=== PATIENT | female | born 1950 | race Caucasian/White ===

== ENCOUNTER 2016-04-03 17:21 | Observation (INO) ==
[2016-04-03] MEDS ORDERED: Ondansetron 4 MG/2 ML VIAL IVP ONE ×2 (20:30→22:47)
[2016-04-03] MEDS ORDERED: *HR* Morphine 2 MG/ML SYRINGE IVP ONE ×2 (20:30→22:47)
--- NOTE | 2016-04-03 20:33 | Emergency Department Note ---
Disposition Clinical Impression: Epigastric pain, RUQ pain Disposition: Still a Patient Condition: Fair Referrals: NO,PCP [Primary Care Provider] - Forms: Work/School Release, ED Satisfaction Letter Time of Disposition: 23:09 Abdominal Pain HPI - General Chief Complaint: ED Abdominal Pain Stated Complaint: abd pain// sent from [facility] Time Seen by Provider: 04/03/16 20:22 Source: patient Mode of arrival: ambulatory Limitations: no limitations Nursing Notes Reviewed: Yes Vital Signs Reviewed: Yes - History of Present Illness HPI Narrative: Patient is a 65-year-old female with past medical history of diabetes and hypertension. She presents today due to abdominal pain. Patient states that she has had epigastric and right upper quadrant pain for the past 2 weeks. She states that the pain is constant dull ache with sharp shooting pains that radiate to her back and to her right scapula. She denies any association with food. She does state that the pain worsens when she moves her right arm or lays on her right side. She denies any nausea or vomiting, fevers, other chest pain, shortness of breath, burning with urination or blood in urine, changes in bowel movements. She was sent by her primary care physician due to concern for pancreatitis versus cholecystitis. Pain Scale: 10 - Related Data Home Medications Medication Instructions Recorded Confirmed Aspirin 81 mg PO DAILY 12/26/15 12/26/15 Atenolol [Tenormin] 25 mg PO DAILY 12/26/15 12/26/15 Atorvastatin Calcium [Lipitor] 20 mg PO DAILY 12/26/15 12/26/15 Fluconazole [Diflucan] 150 mg PO DAILY 12/26/15 12/26/15 Glimepiride [Amaryl] 2 mg PO 0800 12/26/15 12/26/15 Hydrochlorothiazide 25 mg PO DAILY 12/26/15 12/26/15 Hydrocortisone Acetate [Anucort-Hc] 25 mg RC BID 12/26/15 12/26/15 Hydrocortisone Rectal CRM 1 appl RC BID 12/26/15 12/26/15 [Proctosol-Hc] Lidocaine HCl [Xolido] 1 appl TP TID 12/26/15 12/26/15 Lisinopril [Zestril] 20 mg PO DAILY 12/26/15 12/26/15 Meclizine HCl [Verticalm] 25 mg PO DAILY 12/26/15 12/26/15 Naproxen Sodium [Aleve] 220 mg PO BID PRN 12/26/15 12/26/15 SitaGLIPtin [Januvia] 100 mg PO DAILY 12/26/15 12/26/15 Previous Rx's Medication Instructions Recorded Docusate [Colace] 100 mg PO BID #30 capsule 12/26/15 Lidocaine Jelly 2% 1 appl MM ONCE #1 jel..ml. 12/26/15 OxyCODONE/APAP 7.5/325 [Percocet 1 each PO Q4HR PRN #50 tablet 12/26/15 7.5/325 MG] Allergies Allergy/AdvReac Type Severity Reaction Status Date / Time Penicillins [PCN] Allergy Hives/swell Verified 04/03/16 17:56 ing Constitutional: Denies: fever Cardiovascular: Denies: chest pain, palpitations, dyspnea on exertion Respiratory: Denies: cough, dyspnea, wheezes Gastrointestinal: Reports: abdominal pain. Denies: nausea, vomiting, diarrhea, constipation, hematemesis, melena, hematochezia Genitourinary: Denies: urgency, dysuria, frequency, hematuria Musculoskeletal: Reports: back pain. Denies: neck pain, joint swelling Integumentary: Denies: rash Neurological: Denies: headache, weakness, numbness Abdominal Pain PMH - Past Medical History Medical history: Reports: COPD, CVA, diabetes, hyperlipidemia, hypertension Female Surgical History: Reports: other Psychiatric history: Reports: no psych history - Social History Smoking status: Current every day smoker Alcohol use: Reports: none Drug use: Reports: none Physical Exam - General Limitations: no limitations General appearance: alert - Head Head exam: atraumatic, normocephalic, normal inspection - Eye Eye exam: Present: normal appearance, PERRL, EOMI - ENT ENT exam: normal exam, normal oropharynx, mucous membranes moist - Neck Neck exam: Present: normal inspection, full ROM, trachea midline - Chest Chest inspection: Present: normal inspection, symmetric chest wall rise - Respiratory Respiratory exam: Present: normal lung sounds bilaterally. Absent: respiratory distress, wheezes - Cardiovascular Cardiovascular exam: Present: regular rate, normal rhythm, normal heart sounds - Abdominal Exam Abdominal exam: Present: soft, tenderness (Tenderness in the epigastric and right upper quadrant regions), guarding (voluntary), Ward's sign. Absent: distention, rebound, rigidity - Extremities Exam Extremities exam: Present: normal inspection, full ROM. Absent: tenderness, pedal edema - Neurological Exam Neurological exam: Present: alert, oriented X3 - Psychiatric Psychiatric exam: Present: normal affect, normal mood - Skin Skin exam: Present: warm, dry, intact, normal color Course Course Narrative: Patient mildly hypertensive, likely due to pain. The rest of the vitals on my exam were within normal limits. Physical exam shows moderate tenderness in the epigastric and right upper quadrant with radiation of pain to the back and scapula upon palpation. Current concern for pancreatitis versus cholecystitis. However, I am more concerned for cholecystitis at this time. Patient refused pain or nausea medication. WIll also order cardiac labs due to radiation of pain to right back/scapula and epigastric pain. Less likely [place], but she is diabetic and older female, could be atypical presentation. 23:08 UA negative. BMP nonconcerning. Mild leukocytosis. US gallbladder showed no signs of cholecystitis. CT abd and pevlis ordered for further assessement. Patient was ordered morphine and zofran per patient request. Currently wiating on CT results. Patient signed out to Kevin Harrington and Apollo Barajas for further dispo. Vital Signs Temperature 98.0 F 04/03/16 17:53 Pulse Rate 62 04/03/16 17:53 Respiratory Rate 18 04/03/16 17:53 Blood Pressure 153/85 04/03/16 17:53 O2 Sat by Pulse Oximetry 94 L 04/03/16 17:53 Temperature 98.0 F 04/03/16 17:53 Pulse Rate 57 04/03/16 21:37 Respiratory Rate 18 04/03/16 21:37 Blood Pressure 135/76 04/03/16 21:37 O2 Sat by Pulse Oximetry 98 04/03/16 21:37 Oxygen Delivery Oxygen Delivery Room Air Abdominal Pain - MDM Narrative Medical decision making narrative: Patient mildly hypertensive, likely due to pain. The rest of the vitals on my exam were within normal limits. Physical exam shows moderate tenderness in the epigastric and right upper quadrant with radiation of pain to the back and scapula upon palpation. Current concern for pancreatitis versus cholecystitis. However, I am more concerned for cholecystitis at this time. Patient refused pain or nausea medication. WIll also order cardiac labs due to radiation of pain to right back/scapula and epigastric pain. Less likely [place], but she is diabetic and older female, could be atypical presentation. 23:08 UA negative. BMP nonconcerning. Mild leukocytosis. US gallbladder showed no signs of cholecystitis. CT abd and pevlis ordered for further assessement. Patient was ordered morphine and zofran per patient request. Currently wiating on CT results. Patient signed out to Kevin Harrington and Apollo Barjaas for further dispo. - Medical Records Medical records reviewed: Yes I reviewed the patient's medical records. - Lab Data Lab results reviewed: Yes I reviewed the patient's lab results. Result diagrams: 04/03/16 20:41 04/03/16 20:41 Lab Results 04/03/16 04/03/16 04/03/16 Range/Units 20:12 20:41 20:41 WBC 11.5 H (4.3-11.1) K/mcL RBC 5.09 H (3.82-4.97) M/mcL Hgb 15.2 (11.5-15.4) g/dL Hct 45.2 H (35.3-44.9) % MCV 88.8 (83.0-100.0) fL MCH 29.9 (28.0-33.3) pg MCHC 33.6 (31.6-35.5) g/dL RDW 15.9 H (11.5-14.5) % Plt Count 221 (140-400) K/mcL MPV 10.4 (9.4-12.4) fL Immature Gran % 0.4 (0-4) % Seg Neutrophils % 72.6 % Lymphocytes % 19.9 % Monocytes % 5.8 % Eosinophils % 1.0 % Basophils % 0.3 % Neutrophils # 8.3 (1.6-8.9) K/mcL Lymphocytes # 2.3 (0.6-4.6) K/mcL Monocytes # 0.7 (0.0-1.3) K/mcL Eosinophils # 0.1 (0.0-0.6) K/mcL Basophils # 0.0 (0.0-0.2) K/mcL Sodium 138 (136-145) mEq/L Potassium 4.3 (3.5-4.5) mEq/L Chloride 104 (98-109) mEq/L Carbon Dioxide 22 (19-29) mEq/L BUN 20 (7-20) mg/dL Creatinine 0.84 (0.57-1.11) mg/dL Est GFR ( Amer) > 60 (> 60) Est GFR (Non-Af Amer) > 60 (> 60) BUN/Creatinine Ratio 24 (6-26) Glucose 66 L (70-99) mg/dL Calculated Osmolality 287 (280-300) Calcium 10.1 (8.6-10.8) mg/dL Total Bilirubin 0.6 (0.2-1.2) mg/dL Direct Bilirubin 0.2 (0.0-0.5) mg/dL Indirect Bilirubin 0.4 (0.0-1.2) mg/dL AST 18 (5-34) Units/L ALT 11 (0-55) Units/L Alkaline Phosphatase 130 H (38-126) Units/L Troponin I (0-0.03) ng/mL Serum Total Protein 7.2 (6.0-8.3) g/dL Albumin 3.5 (3.5-5.0) g/dL Globulin 3.7 H (2.4-3.5) g/dL Albumin/Globulin Ratio 0.9 L (1.1-2.2) Amylase 59 (25-125) Units/L Lipase 17 (8-78) Units/L Urine Color Yellow (Yellow) Urine Clarity Clear (Clear) Urine pH 6.0 (5.0-8.0) pH Units Ur Specific Mos[place] 1.007 L (1.010-1.025) Urine Protein Negative (Neg-Trace) mg/dL Urine Glucose (UA) Normal (Normal) mg/dL Urine Ketones Negative (Negative) mg/dL Urine Blood Negative (Negative) Urine Nitrite Negative (Negative) Urine Bilirubin Negative (Negative) Urine Urobilinogen Normal (Normal) mg/dL Ur Leukocyte Esterase Negative (Negative) Ur Culture Indicated? NO (NO) 04/03/16 Range/Units 20:41 WBC (4.3-11.1) K/mcL RBC (3.82-4.97) M/mcL Hgb (11.5-15.4) g/dL Hct (35.3-44.9) % MCV (83.0-100.0) fL MCH (28.0-33.3) pg MCHC (31.6-35.5) g/dL RDW (11.5-14.5) % Plt Count (140-400) K/mcL MPV (9.4-12.4) fL Immature Gran % (0-4) % Seg Neutrophils % % Lymphocytes % % Monocytes % % Eosinophils % % Basophils % % Neutrophils # (1.6-8.9) K/mcL Lymphocytes # (0.6-4.6) K/mcL Monocytes # (0.0-1.3) K/mcL Eosinophils # (0.0-0.6) K/mcL Basophils # (0.0-0.2) K/mcL Sodium (136-145) mEq/L Potassium (3.5-4.5) mEq/L Chloride (98-109) mEq/L Carbon Dioxide (19-29) mEq/L BUN (7-20) mg/dL Creatinine (0.57-1.11) mg/dL Est GFR ( Amer) (> 60) Est GFR (Non-Af Amer) (> 60) BUN/Creatinine Ratio (6-26) Glucose (70-99) mg/dL Calculated Osmolality (280-300) Calcium (8.6-10.8) mg/dL Total Bilirubin (0.2-1.2) mg/dL Direct Bilirubin (0.0-0.5) mg/dL Indirect Bilirubin (0.0-1.2) mg/dL AST (5-34) Units/L ALT (0-55) Units/L Alkaline Phosphatase (38-126) Units/L Troponin I 0.00 (0-0.03) ng/mL Serum Total Protein (6.0-8.3) g/dL Albumin (3.5-5.0) g/dL Globulin (2.4-3.5) g/dL Albumin/Globulin Ratio (1.1-2.2) Amylase (25-125) Units/L Lipase (8-78) Units/L Urine Color (Yellow) Urine Clarity (Clear) Urine pH (5.0-8.0) pH Units Ur Specific [place] (1.010-1.025) Urine Protein (Neg-Trace) mg/dL Urine Glucose (UA) (Normal) mg/dL Urine Ketones (Negative) mg/dL Urine Blood (Negative) Urine Nitrite (Negative) Urine Bilirubin (Negative) Urine Urobilinogen (Normal) mg/dL Ur Leukocyte Esterase (Negative) Ur Culture Indicated? (NO) - Radiology Data Radiology results reviewed: Yes I reviewed the patient's radiology results. Chest X-Ray 04/03/16 20:29 IMPRESSION: Cardiomegaly and mild pulmonary vascular congestion. Ground-glass opacities in the medial right lung base may represent edema, but pneumonitis cannot be excluded. D/ / Demar Ray MD / Demar Ray MD Interpreting Provider: Demar Ray MD - EKG Data EKG attestation: Yes I reviewed and interpreted this EKG. EKG results narrative: 04/03/2016 at 20:13. Sinus bradycardia. Rate 56. QTC 386. QRS 82. No acute ST elevation or depression. There are T-wave inversions in aVR, V1, lead 3 that are present on previous EKG on 12/20/2015. Attestation Statement - Attestation Attestation: I examined this patient and my medical decision-making was reviewed with the [employer]/PA/Advanced Practice Nurse/Resident Physician. I agree with the documented findings, disposition and treatment plan as described except to the extent set forth below. Patient emergency department 2 weeks of right upper quadrant abdominal pain. Patient reports pain going to her shoulder. Denies fever. She denies being affected by eating food. Was sent in by her primary care doctor. On exam she is in no distress with right upper quadrant tenderness and a positive Ward sign. Plan. Labs and right upper quadrant ultrasound. Patient declines pain control at this time.
[2016-04-03 20:37] LABS: Bilirubin,Urine Negative (Negative); Blood,Urine Negative (Negative); Clarity,Urine Clear (Clear); Color,Urine Yellow (Yellow); Glucose,Urine (UA) Normal (Normal); Ketones,Urine Negative (Negative); Leukocyte Esterase,Urine Negative (Negative); Nitrite,Urine Negative (Negative); Protein,Urine Negative (Neg-Trace); Specific Gravity,Urine 1.007 (1.010-1.025); Urobilinogen,Urine Normal (Normal)
[2016-04-03 20:51] LABS: Basophils % 0.3 %; Eosinophils # 0.1 K/mcL (0.0-0.6); Hematocrit 45.2 % (35.3-44.9); Hemoglobin 15.2 g/dL (11.5-15.4); Immature Granulocytes % 0.4 % (0-4); Lymphocytes # 2.3 K/mcL (0.6-4.6); Lymphocytes % 19.9 %; Mean Corpuscular HGB Conc 33.6 g/dL (31.6-35.5); Mean Corpuscular Hemoglobin 29.9 pg (28.0-33.3); Mean Corpuscular Volume 88.8 fL (83.0-100.0); Mean Platelet Volume 10.4 fL (9.4-12.4); Monocytes # 0.7 K/mcL (0.0-1.3); Monocytes % 5.8 %; Neutrophils # 8.3 K/mcL (1.6-8.9); Platelet Count 221 K/mcL (140-400); Red Blood Count 5.09 M/mcL (3.82-4.97); Red Cell Distribution Width 15.9 % (11.5-14.5); Segmented Neutrophils % 72.6 %
[2016-04-03 21:07] LABS: Alanine Aminotransferase 11 Units/L (0-55); Albumin 3.5 g/dL (3.5-5.0); Albumin/Globulin Ratio 0.9 (1.1-2.2); Alkaline Phosphatase 130 Units/L (38-126); Amylase 59 Units/L (25-125); Aspartate Amino Transferase 18 Units/L (5-34); BUN/Creatinine Ratio 24 (6-26); Bilirubin,Direct 0.2 mg/dL (0.0-0.5); Bilirubin,Indirect 0.4 mg/dL (0.0-1.2); Bilirubin,Total 0.6 mg/dL (0.2-1.2); Blood Urea Nitrogen 20 mg/dL (7-20); Calcium 10.1 mg/dL (8.6-10.8); Carbon Dioxide 22 mEq/L (19-29); Chloride 104 mEq/L (98-109); Globulin 3.7 g/dL (2.4-3.5); Glucose 66 mg/dL (70-99); Lipase 17 Units/L (8-78); Osmolality,Calculated 287 (280-300); Potassium 4.3 mEq/L (3.5-4.5); Sodium 138 mEq/L (136-145); Total Protein 7.2 g/dL (6.0-8.3); eGFR For African Americans > 60 (> 60); eGFR For Non-African Americans > 60 (> 60)
--- NOTE | 2016-04-04 01:52 | Emergency Department Note ---
Disposition Clinical Impression: Epigastric pain, RUQ pain, Pulmonary neoplasm Disposition: Admitted As Inpatient Condition: Good Time of Disposition: 01:43 Abdominal Pain HPI - General Chief Complaint: ED Abdominal Pain Stated Complaint: abd pain// sent from [facility] Time Seen by Provider: 04/03/16 20:22 Source: patient Mode of arrival: ambulatory Nursing Notes Reviewed: Yes Vital Signs Reviewed: Yes - History of Present Illness Pain Scale: 7 - Related Data Home Medications Medication Instructions Recorded Confirmed Aspirin 81 mg PO DAILY 12/26/15 12/26/15 Atenolol [Tenormin] 25 mg PO DAILY 12/26/15 12/26/15 Atorvastatin Calcium [Lipitor] 20 mg PO DAILY 12/26/15 12/26/15 Fluconazole [Diflucan] 150 mg PO DAILY 12/26/15 12/26/15 Glimepiride [Amaryl] 2 mg PO 0800 12/26/15 12/26/15 Hydrochlorothiazide 25 mg PO DAILY 12/26/15 12/26/15 Hydrocortisone Acetate [Anucort-Hc] 25 mg RC BID 12/26/15 12/26/15 Hydrocortisone Rectal CRM 1 appl RC BID 12/26/15 12/26/15 [Proctosol-Hc] Lidocaine HCl [Xolido] 1 appl TP TID 12/26/15 12/26/15 Lisinopril [Zestril] 20 mg PO DAILY 12/26/15 12/26/15 Meclizine HCl [Verticalm] 25 mg PO DAILY 12/26/15 12/26/15 Naproxen Sodium [Aleve] 220 mg PO BID PRN 12/26/15 12/26/15 SitaGLIPtin [Januvia] 100 mg PO DAILY 12/26/15 12/26/15 Previous Rx's Medication Instructions Recorded Docusate [Colace] 100 mg PO BID #30 capsule 12/26/15 Lidocaine Jelly 2% 1 appl MM ONCE #1 jel..ml. 12/26/15 OxyCODONE/APAP 7.5/325 [Percocet 1 each PO Q4HR PRN #50 tablet 12/26/15 7.5/325 MG] Allergies Allergy/AdvReac Type Severity Reaction Status Date / Time Penicillins [PCN] Allergy Hives/swell Verified 04/03/16 17:56 ing Constitutional: Denies: fever Cardiovascular: Denies: chest pain, palpitations, dyspnea on exertion Respiratory: Denies: cough, dyspnea, wheezes Gastrointestinal: Reports: abdominal pain. Denies: nausea, vomiting, diarrhea, constipation, hematemesis, melena, hematochezia Genitourinary: Denies: urgency, dysuria, frequency, hematuria Musculoskeletal: Reports: back pain. Denies: neck pain, joint swelling Integumentary: Denies: rash Neurological: Denies: headache, weakness, numbness Abdominal Pain PMH - Past Medical History Medical history: Reports: COPD, CVA, diabetes, hyperlipidemia, hypertension Female Surgical History: Reports: other Psychiatric history: Reports: no psych history - Social History Smoking status: Current every day smoker Alcohol use: Reports: none Drug use: Reports: none Physical Exam - General Limitations: no limitations General appearance: alert Course Course Narrative: Due to shift change, care of this patient was transferred to [facility]. Please see their earlier documentation for details. Patient had presented from home with 2 week history of epigastric and right upper quadrant pain. Patient was referred by her primary care provider to rule out cholecystitis and pancreatitis. Patient had normal LFT, and lipase level, as well as normal liver gallbladder ultrasound. however abdominal pelvis CT showed middle lobe mass and left lower pulmonary nodules. Follow-up chest CT was ordered and showed 2.9 cm right middle lobe mass consistent with pulmonary neoplasm, as well as multiple lower lobe left sided nodules. I discussed patient with Dr. Harrington, who had discussed with the on-call oncologist who recommended patient could be admitted or discharged for outpatient treatment. These options were discussed with patient, who is requesting admission. Per Dr. Harrington, oncology is recommending a PET scan and biopsy tomorrow. Will plan to admit to hospitalists. Vital Signs Temperature 98.0 F 04/03/16 17:53 Pulse Rate 62 04/03/16 17:53 Respiratory Rate 18 04/03/16 17:53 Blood Pressure 153/85 04/03/16 17:53 O2 Sat by Pulse Oximetry 94 L 04/03/16 17:53 Temperature 98.0 F 04/03/16 17:53 Pulse Rate 65 04/04/16 02:52 Respiratory Rate 18 04/04/16 03:43 Blood Pressure 120/72 04/04/16 03:43 O2 Sat by Pulse Oximetry 95 04/04/16 02:52 Oxygen Delivery Oxygen Delivery Room Air Abdominal Pain - MDM Narrative Medical decision making narrative: Patient is a 65-year-old female smoker present with 2 week history of epigastric and right upper quadrant pain. She was referred to the ED by her primary care provider who was concerned for cholecystitis and pancreatitis. Patient had a ultrasound, that showed no concerning signs for cholecystitis. Her lab work showed no elevation of white count, liver enzymes or lipase. Her epigastric and right upper quadrant pain had improved after medications here. Over her workup also included CT abdomen and pelvis chest, which showed a new right middle lobe neoplasm, and smaller left lower nodules. Patient was discussed with Dr. Harrington who also had [id number] time with patient, Oncology was paged, and he advised patient could be admitted to initiate workup including PET scan, and biopsy to initiate workup. This was agreeable to patient who also preferred not to go home. Patient was accepted by hospitalist for observation. Vitals have been stable. Pain is under control. Chest X-Ray 04/03/16 20:29 IMPRESSION: Cardiomegaly and mild pulmonary vascular congestion. Ground-glass opacities in the medial right lung base may represent edema, but pneumonitis cannot be excluded. D/ / Demar Ray MD / Demar Ray MD Interpreting Provider: Demar Ray MD Gallbladder Ultrasound 04/03/16 20:30 IMPRESSION: 1. Unremarkable gallbladder. 2. Hyperechoic liver suggestive of fatty infiltration. D/ / Pierre Rubio MD / Pierre Rubio MD Interpreting Provider: Pierre Rubio MD Abdomen/Pelvis CT 04/03/16 21:27 IMPRESSION: 1. Middle lobe mass and left lower lobe pulmonary nodule. Chest CT is recommended for further evaluation. 2. Left adrenal gland nodules, indeterminate. Given the possibility of a lung mass, metastatic disease must be considered. 3. Nonobstructing left renal calculus. D/ / Daryl Lance MD / Daryl Lance MD Interpreting Provider: Daryl Lance MD Chest CT 04/03/16 23:25 IMPRESSION: 1. 2.9 cm lobular opacity in right middle lobe is suspicious for pulmonary neoplasm. 2. Pulmonary nodules in left lower lobe measuring up to 0.9 cm. 3. Lobular enlarged left adrenal gland of indeterminate cause. D/ / Pierre Rubio MD / Pierre Rubio MD Interpreting Provider: Pierre Rubio MD All Lab Results (24 Hours) 04/03/16 04/03/16 04/03/16 Range/Units 20:12 20:41 20:41 WBC 11.5 H (4.3-11.1) K/mcL RBC 5.09 H (3.82-4.97) M/mcL Hgb 15.2 (11.5-15.4) g/dL Hct 45.2 H (35.3-44.9) % MCV 88.8 (83.0-100.0) fL MCH 29.9 (28.0-33.3) pg MCHC 33.6 (31.6-35.5) g/dL RDW 15.9 H (11.5-14.5) % Plt Count 221 (140-400) K/mcL MPV 10.4 (9.4-12.4) fL Immature Gran % 0.4 (0-4) % Seg Neutrophils % 72.6 % Lymphocytes % 19.9 % Monocytes % 5.8 % Eosinophils % 1.0 % Basophils % 0.3 % Neutrophils # 8.3 (1.6-8.9) K/mcL Lymphocytes # 2.3 (0.6-4.6) K/mcL Monocytes # 0.7 (0.0-1.3) K/mcL Eosinophils # 0.1 (0.0-0.6) K/mcL Basophils # 0.0 (0.0-0.2) K/mcL Sodium 138 (136-145) mEq/L Potassium 4.3 (3.5-4.5) mEq/L Chloride 104 (98-109) mEq/L Carbon Dioxide 22 (19-29) mEq/L BUN 20 (7-20) mg/dL Creatinine 0.84 (0.57-1.11) mg/dL Est GFR ( Amer) > 60 (> 60) Est GFR (Non-Af Amer) > 60 (> 60) BUN/Creatinine Ratio 24 (6-26) Glucose 66 L (70-99) mg/dL Calculated Osmolality 287 (280-300) Calcium 10.1 (8.6-10.8) mg/dL Total Bilirubin 0.6 (0.2-1.2) mg/dL Direct Bilirubin 0.2 (0.0-0.5) mg/dL Indirect Bilirubin 0.4 (0.0-1.2) mg/dL AST 18 (5-34) Units/L ALT 11 (0-55) Units/L Alkaline Phosphatase 130 H (38-126) Units/L Troponin I (0-0.03) ng/mL Serum Total Protein 7.2 (6.0-8.3) g/dL Albumin 3.5 (3.5-5.0) g/dL Globulin 3.7 H (2.4-3.5) g/dL Albumin/Globulin Ratio 0.9 L (1.1-2.2) Amylase 59 (25-125) Units/L Lipase 17 (8-78) Units/L Urine Color Yellow (Yellow) Urine Clarity Clear (Clear) Urine pH 6.0 (5.0-8.0) pH Units Ur Specific [place] 1.007 L (1.010-1.025) Urine Protein Negative (Neg-Trace) mg/dL Urine Glucose (UA) Normal (Normal) mg/dL Urine Ketones Negative (Negative) mg/dL Urine Blood Negative (Negative) Urine Nitrite Negative (Negative) Urine Bilirubin Negative (Negative) Urine Urobilinogen Normal (Normal) mg/dL Ur Leukocyte Esterase Negative (Negative) Ur Culture Indicated? NO (NO) 04/03/16 Range/Units 20:41 WBC (4.3-11.1) K/mcL RBC (3.82-4.97) M/mcL Hgb (11.5-15.4) g/dL Hct (35.3-44.9) % MCV (83.0-100.0) fL MCH (28.0-33.3) pg MCHC (31.6-35.5) g/dL RDW (11.5-14.5) % Plt Count (140-400) K/mcL MPV (9.4-12.4) fL Immature Gran % (0-4) % Seg Neutrophils % % Lymphocytes % % Monocytes % % Eosinophils % % Basophils % % Neutrophils # (1.6-8.9) K/mcL Lymphocytes # (0.6-4.6) K/mcL Monocytes # (0.0-1.3) K/mcL Eosinophils # (0.0-0.6) K/mcL Basophils # (0.0-0.2) K/mcL Sodium (136-145) mEq/L Potassium (3.5-4.5) mEq/L Chloride (98-109) mEq/L Carbon Dioxide (19-29) mEq/L BUN (7-20) mg/dL Creatinine (0.57-1.11) mg/dL Est GFR ( Amer) (> 60) Est GFR (Non-Af Amer) (> 60) BUN/Creatinine Ratio (6-26) Glucose (70-99) mg/dL Calculated Osmolality (280-300) Calcium (8.6-10.8) mg/dL Total Bilirubin (0.2-1.2) mg/dL Direct Bilirubin (0.0-0.5) mg/dL Indirect Bilirubin (0.0-1.2) mg/dL AST (5-34) Units/L ALT (0-55) Units/L Alkaline Phosphatase (38-126) Units/L Troponin I 0.00 (0-0.03) ng/mL Serum Total Protein (6.0-8.3) g/dL Albumin (3.5-5.0) g/dL Globulin (2.4-3.5) g/dL Albumin/Globulin Ratio (1.1-2.2) Amylase (25-125) Units/L Lipase (8-78) Units/L Urine Color (Yellow) Urine Clarity (Clear) Urine pH (5.0-8.0) pH Units Ur Specific [place] (1.010-1.025) Urine Protein (Neg-Trace) mg/dL Urine Glucose (UA) (Normal) mg/dL Urine Ketones (Negative) mg/dL Urine Blood (Negative) Urine Nitrite (Negative) Urine Bilirubin (Negative) Urine Urobilinogen (Normal) mg/dL Ur Leukocyte Esterase (Negative) Ur Culture Indicated? (NO) - Lab Data Lab results reviewed: Yes I reviewed the patient's lab results. Result diagrams: 04/03/16 20:41 04/03/16 20:41 Lab Results 04/03/16 04/03/16 04/03/16 Range/Units 20:12 20:41 20:41 WBC 11.5 H (4.3-11.1) K/mcL RBC 5.09 H (3.82-4.97) M/mcL Hgb 15.2 (11.5-15.4) g/dL Hct 45.2 H (35.3-44.9) % MCV 88.8 (83.0-100.0) fL MCH 29.9 (28.0-33.3) pg MCHC 33.6 (31.6-35.5) g/dL RDW 15.9 H (11.5-14.5) % Plt Count 221 (140-400) K/mcL MPV 10.4 (9.4-12.4) fL Immature Gran % 0.4 (0-4) % Seg Neutrophils % 72.6 % Lymphocytes % 19.9 % Monocytes % 5.8 % Eosinophils % 1.0 % Basophils % 0.3 % Neutrophils # 8.3 (1.6-8.9) K/mcL Lymphocytes # 2.3 (0.6-4.6) K/mcL Monocytes # 0.7 (0.0-1.3) K/mcL Eosinophils # 0.1 (0.0-0.6) K/mcL Basophils # 0.0 (0.0-0.2) K/mcL Sodium 138 (136-145) mEq/L Potassium 4.3 (3.5-4.5) mEq/L Chloride 104 (98-109) mEq/L Carbon Dioxide 22 (19-29) mEq/L BUN 20 (7-20) mg/dL Creatinine 0.84 (0.57-1.11) mg/dL Est GFR ( Amer) > 60 (> 60) Est GFR (Non-Af Amer) > 60 (> 60) BUN/Creatinine Ratio 24 (6-26) Glucose 66 L (70-99) mg/dL Calculated Osmolality 287 (280-300) Calcium 10.1 (8.6-10.8) mg/dL Total Bilirubin 0.6 (0.2-1.2) mg/dL Direct Bilirubin 0.2 (0.0-0.5) mg/dL Indirect Bilirubin 0.4 (0.0-1.2) mg/dL AST 18 (5-34) Units/L ALT 11 (0-55) Units/L Alkaline Phosphatase 130 H (38-126) Units/L Troponin I (0-0.03) ng/mL Serum Total Protein 7.2 (6.0-8.3) g/dL Albumin 3.5 (3.5-5.0) g/dL Globulin 3.7 H (2.4-3.5) g/dL Albumin/Globulin Ratio 0.9 L (1.1-2.2) Amylase 59 (25-125) Units/L Lipase 17 (8-78) Units/L Urine Color Yellow (Yellow) Urine Clarity Clear (Clear) Urine pH 6.0 (5.0-8.0) pH Units Ur Specific [place] 1.007 L (1.010-1.025) Urine Protein Negative (Neg-Trace) mg/dL Urine Glucose (UA) Normal (Normal) mg/dL Urine Ketones Negative (Negative) mg/dL Urine Blood Negative (Negative) Urine Nitrite Negative (Negative) Urine Bilirubin Negative (Negative) Urine Urobilinogen Normal (Normal) mg/dL Ur Leukocyte Esterase Negative (Negative) Ur Culture Indicated? NO (NO) 04/03/16 Range/Units 20:41 WBC (4.3-11.1) K/mcL RBC (3.82-4.97) M/mcL Hgb (11.5-15.4) g/dL Hct (35.3-44.9) % MCV (83.0-100.0) fL MCH (28.0-33.3) pg MCHC (31.6-35.5) g/dL RDW (11.5-14.5) % Plt Count (140-400) K/mcL MPV (9.4-12.4) fL Immature Gran % (0-4) % Seg Neutrophils % % Lymphocytes % % Monocytes % % Eosinophils % % Basophils % % Neutrophils # (1.6-8.9) K/mcL Lymphocytes # (0.6-4.6) K/mcL Monocytes # (0.0-1.3) K/mcL Eosinophils # (0.0-0.6) K/mcL Basophils # (0.0-0.2) K/mcL Sodium (136-145) mEq/L Potassium (3.5-4.5) mEq/L Chloride (98-109) mEq/L Carbon Dioxide (19-29) mEq/L BUN (7-20) mg/dL Creatinine (0.57-1.11) mg/dL Est GFR ( Amer) (> 60) Est GFR (Non-Af Amer) (> 60) BUN/Creatinine Ratio (6-26) Glucose (70-99) mg/dL Calculated Osmolality (280-300) Calcium (8.6-10.8) mg/dL Total Bilirubin (0.2-1.2) mg/dL Direct Bilirubin (0.0-0.5) mg/dL Indirect Bilirubin (0.0-1.2) mg/dL AST (5-34) Units/L ALT (0-55) Units/L Alkaline Phosphatase (38-126) Units/L Troponin I 0.00 (0-0.03) ng/mL Serum Total Protein (6.0-8.3) g/dL Albumin (3.5-5.0) g/dL Globulin (2.4-3.5) g/dL Albumin/Globulin Ratio (1.1-2.2) Amylase (25-125) Units/L Lipase (8-78) Units/L Urine Color (Yellow) Urine Clarity (Clear) Urine pH (5.0-8.0) pH Units Ur Specific [place] (1.010-1.025) Urine Protein (Neg-Trace) mg/dL Urine Glucose (UA) (Normal) mg/dL Urine Ketones (Negative) mg/dL Urine Blood (Negative) Urine Nitrite (Negative) Urine Bilirubin (Negative) Urine Urobilinogen (Normal) mg/dL Ur Leukocyte Esterase (Negative) Ur Culture Indicated? (NO) - Radiology Data Radiology results reviewed: Yes I reviewed the patient's radiology results.
--- NOTE | 2016-04-04 04:39 | Emergency Department Note ---
START Narrative - START START: For this encounter, I have reviewed the resident, CAR DROPPER, or PA documentation, treatment plan, and medical decision making; and I have had face to face time with this patient. Patient received in signout from Dr. Armstrong pending CT and disposition. CT returned with large mass in the right middle lobe. This is new per the patient is spoke with Dr. Minor, the covering oncologist, who recommended admission to the hospital the patient was currently unable to follow closely as an outpatient. Patient states that she will be unable to obtain close follow-up and we will admit the hospital for further care and observation. Patient's pain is well-controlled after administration of pain medication in the emergency department. Patient is comfortable with the plan for admission to the hospital.
--- NOTE | 2016-04-04 06:05 | Internal Med History&Physical ---
<Deepa Hill Tiffany - Last Filed: 04/04/16 06:56> Date of Encounter: 04/04/16 Time of Encounter: 03:00 Assessment and Plan (1) Pulmonary neoplasm Current visit: Yes Status: Acute CT with 2.9 cm lobular opacity in right middle lobe suspicious for neoplasm. Also, pulmonary nodules in left lower lobe measuring up to 0.9 cm, and lobular enlarged left adrenal gland concerning for metastatic disease. Plan: Pulmonology consult for bronchoscopy and tissue studies Oncology consult to follow tissue diagnosis (2) Diabetes mellitus type 2 in obese Current visit: Yes Status: Acute Plan: Hold home medication Low-dose correction protocol (3) Hypertension Current visit: Yes Status: Acute BP 101/64 upon presentation to ED Plan: Hold home med for now Continue to monitor BP Qualifiers: Hypertension type: essential hypertension Qualified Code(s): I10 - Essential (primary) hypertension (4) Tobacco abuse disorder Current visit: Yes Status: Acute Smoking cessation discussed (5) DVT prophylaxis Current visit: Yes Status: Acute Plan to start Lovenox once biopsy is completed Internal Medicine - H&P: HPI Chief complaint: RUQ pain Admitted From: Emergency Dept Plans for Post Hospital Care: Home History of present illness: Ms. Pina is a 65 year old female with past medical history significant for COPD, CVA, diabetes, hyperlipidemia, hypertension. She states she has 2 week history of right upper quadrant abdominal pain that radiates around the right flank and up to the right scapula. Pain was described as electrical shocks in the abdomen. Pain has been constant for 2 weeks but has waxed and waned in intensity. On 04/03/2016 pain progressed to a 9 out of 10. Patient tried icy hot rub and heat packs for the problem. Problem was improved by heat and worsened by nothing. Denies any associated fever, chills, nausea, vomiting, heartburn, diarrhea, constipation, hematochezia, melena. Past Med Surg Social Fam HX - Past Medical History Medical history: COPD, CVA, diabetes, hyperlipidemia, hypertension Psychiatric history: no psych history - Past Surgical History Surgical History: cataract, hysterectomy, other (hemorrhoid thrombectomy) - Social History Smoking Status: Current every day smoker Smokeless Tobacco Status: No Alcohol use: none Drug use: none Internal Medicine - H&P: Meds Aspirin 81 mg PO DAILY 12/26/15 [History] Atenolol [Tenormin] 25 mg PO DAILY 12/26/15 [History] Atorvastatin Calcium [Lipitor] 20 mg PO DAILY 12/26/15 [History] Docusate [Colace] 100 mg PO BID #30 capsule 12/26/15 [Rx] Fluconazole [Diflucan] 150 mg PO DAILY 12/26/15 [History] Glimepiride [Amaryl] 2 mg PO 0800 12/26/15 [History] Hydrochlorothiazide 25 mg PO DAILY 12/26/15 [History] Hydrocortisone Acetate [Anucort-Hc] 25 mg RC BID 12/26/15 [History] Hydrocortisone Rectal CRM [Proctosol-Hc] 1 appl RC BID 12/26/15 [History] Lidocaine HCl [Xolido] 1 appl TP TID 12/26/15 [History] Lidocaine Jelly 2% 1 appl MM ONCE #1 jel..ml. 12/26/15 [Rx] Lisinopril [Zestril] 20 mg PO DAILY 12/26/15 [History] Meclizine HCl [Verticalm] 25 mg PO DAILY 12/26/15 [History] Naproxen Sodium [Aleve] 220 mg PO BID PRN 12/26/15 [History] OxyCODONE/APAP 7.5/325 [Percocet 7.5/325 MG] 1 each PO Q4HR PRN #50 tablet 12/25 [Rx] SitaGLIPtin [Januvia] 100 mg PO DAILY 12/26/15 [History] Allergies Penicillins [PCN] Allergy (Verified 04/03/16 17:56) Hives/swelling All Systems PM: A 10-system review of systems was performed and is negative for pertinent findings except as documented above in the HPI. - Constitutional Constitutional: anorexia, weight gain, no chills, no fever(s), no weakness - Cardiovascular Cardiovascular ROS IM: edema (On occasion), no chest pain, no dyspnea, no irregular heart rhythm, no palpitations - Respiratory Respiratory: cough (2 months productive of yellow sputum), no dyspnea, no hemoptysis - Gastrointestinal Gastrointestinal: no abdominal pain, no constipation, no diarrhea, no hematochezia, no melena, no nausea, no vomiting - Genitourinary Genitourinary: no dysuria, no hematuria - Musculoskeletal Musculoskeletal ROS IM: no back pain (As 2 weeks) - Neurological Neurological ROS: confusion, memory loss (States she is unable to recall her medications or medical problems. Patient tearful out this fact.) - Psychiatric Psychiatric: abnormal sleep pattern (Decreased sleep due to pain) - Endocrine Endocrine IM: cold intolerance - Constitutional Vitals: Temp Pulse Resp BP Pulse Ox 97.7 F 60 12 118/65 97 04/04/16 05:34 04/04/16 05:34 04/04/16 05:34 04/04/16 05:34 04/04/16 05:34 General appearance: Present: cooperative, A&O X 3, pleasant, answers questions appropriately (Tearful when describing that she is forgetful of medical problems and medications. ) - Head Head exam: Present: atraumatic, normal inspection, normocephalic - Eye Eye exam: Present: EOMI - Neck Neck exam general surgery: Present: normal inspection, supple, trachea midline. Absent: tenderness, nuchal rigidity, thyromegaly - Respiratory Respiratory exam: Present: chest wall tenderness (Bilateral lower ribs), CTAB. Absent: respiratory distress, rhonchi, wheezes - Cardiovascular Cardiovascular exam: Present: distant heart sounds, RRR, +S1, +S2 - GI/Abdominal GI/Abdominal exam: Present: hepatomegaly, soft, splenomegaly, tenderness (liver , spleen, left flank) - Extremities Exam Extremities exam: Present: normal inspection, warm. Absent: pedal edema, tenderness - Neurological Exam Neurological exam: Present: CN II-XII intact. Absent: facial droop, speech deficit - Skin Skin exam: Present: dry, warm Internal Med - H&P Results - Labs CBC & Chem 7: 04/03/16 20:41 04/03/16 20:41 Labs: Laboratory Results - last 48 hr 04/03/16 04/03/16 04/03/16 20:12 20:41 20:41 WBC 11.5 H RBC 5.09 H Hgb 15.2 Hct 45.2 H MCV 88.8 MCH 29.9 MCHC 33.6 RDW 15.9 H Plt Count 221 MPV 10.4 Immature Gran % 0.4 Seg Neutrophils % 72.6 Lymphocytes % 19.9 Monocytes % 5.8 Eosinophils % 1.0 Basophils % 0.3 Neutrophils # 8.3 Lymphocytes # 2.3 Monocytes # 0.7 Eosinophils # 0.1 Basophils # 0.0 Sodium 138 Potassium 4.3 Chloride 104 Carbon Dioxide 22 BUN 20 Creatinine 0.84 Est GFR ( Amer) > 60 Est GFR (Non-Af Amer) > 60 BUN/Creatinine Ratio 24 Glucose 66 L Calculated Osmolality 287 Calcium 10.1 Total Bilirubin 0.6 Direct Bilirubin 0.2 Indirect Bilirubin 0.4 AST 18 ALT 11 Alkaline Phosphatase 130 H Troponin I Serum Total Protein 7.2 Albumin 3.5 Globulin 3.7 H Albumin/Globulin Ratio 0.9 L Amylase 59 Lipase 17 Urine Color Yellow Urine Clarity Clear Urine pH 6.0 Ur Specific [place] 1.007 L Urine Protein Negative Urine Glucose (UA) Normal Urine Ketones Negative Urine Blood Negative Urine Nitrite Negative Urine Bilirubin Negative Urine Urobilinogen Normal Ur Leukocyte Esterase Negative Ur Culture Indicated? NO 04/03/16 20:41 WBC RBC Hgb Hct MCV MCH MCHC RDW Plt Count MPV Immature Gran % Seg Neutrophils % Lymphocytes % Monocytes % Eosinophils % Basophils % Neutrophils # Lymphocytes # Monocytes # Eosinophils # Basophils # Sodium Potassium Chloride Carbon Dioxide BUN Creatinine Est GFR ( Amer) Est GFR (Non-Af Amer) BUN/Creatinine Ratio Glucose Calculated Osmolality Calcium Total Bilirubin Direct Bilirubin Indirect Bilirubin AST ALT Alkaline Phosphatase Troponin I 0.00 Serum Total Protein Albumin Globulin Albumin/Globulin Ratio Amylase Lipase Urine Color Urine Clarity Urine pH Ur Specific [place] Urine Protein Urine Glucose (UA) Urine Ketones Urine Blood Urine Nitrite Urine Bilirubin Urine Urobilinogen Ur Leukocyte Esterase Ur Culture Indicated? - Impressions Chest X-Ray 04/03/16 20:29 IMPRESSION: Cardiomegaly and mild pulmonary vascular congestion. Ground-glass opacities in the medial right lung base may represent edema, but pneumonitis cannot be excluded. D/ / Demar Ray MD / Demar Ray MD Interpreting Provider: Demar Ray MD Gallbladder Ultrasound 04/03/16 20:30 IMPRESSION: 1. Unremarkable gallbladder. 2. Hyperechoic liver suggestive of fatty infiltration. D/ / Pierre Rubio MD / Pierre Rubio MD Interpreting Provider: Pierre Rubio MD Abdomen/Pelvis CT 04/03/16 21:27 IMPRESSION: 1. Middle lobe mass and left lower lobe pulmonary nodule. Chest CT is recommended for further evaluation. 2. Left adrenal gland nodules, indeterminate. Given the possibility of a lung mass, metastatic disease must be considered. 3. Nonobstructing left renal calculus. D/ / Daryl Lance MD / Daryl Lance MD Interpreting Provider: Daryl Lance MD Chest CT 04/03/16 23:25 IMPRESSION: 1. 2.9 cm lobular opacity in right middle lobe is suspicious for pulmonary neoplasm. 2. Pulmonary nodules in left lower lobe measuring up to 0.9 cm. 3. Lobular enlarged left adrenal gland of indeterminate cause. D/ / 04/04/2016 05:58:58 Pierre Rubio MD / [facility] Interpreting Provider: Pierre Rubio MD <Cuong Claire R - Last Filed: 04/04/16 08:26> Date of Encounter: 04/04/16 Internal Medicine - H&P: HPI History of present illness: Ms. Pina is a 65 year old female All Systems PM: A 10-system review of systems was performed and is negative for pertinent findings except as documented above in the HPI. - Constitutional Vitals: Temp Pulse Resp BP Pulse Ox 97.5 F L 53 20 131/84 94 L 04/04/16 07:16 04/04/16 07:16 04/04/16 07:16 04/04/16 07:16 04/04/16 07:16 Internal Med - H&P Results - Labs CBC & Chem 7: 04/03/16 20:41 04/03/16 20:41 - Attending Attestation I have personally evaluated the patient and discussed in details with journalism intern/ resident. 65-year-old female presented with upper abdominal pain. Imaging was negative for gall bladder pathology. Left adrenal nodule and right pulmonary lesion noted - suspicious for malignancy of lung with adrenal metastasis. O/E: lungs clear to auscultation, with few basal crackles. Mild right upper quadrant tenderness. A/P: Pulmonology consultation - for possible bronchoscopy/biopsy of the lung lesion. Consider surgical consultation / GI consult, if the abdominal pain persists.
[2016-04-04] MEDS ORDERED: *HR* Morphine 2 MG/ML SYRINGE IVP PRN (06:30)
[2016-04-04] MEDS ORDERED: Ondansetron 4 MG/2 ML VIAL IVP PRN (06:30)
[2016-04-04] MEDS ORDERED: Naloxone 0.4 MG/ML INJ IVP PRN (06:30)
[2016-04-04] MEDS ORDERED: *HR* OxyCODONE Immed Rel 5 MG TABLET PO PRN (06:30)
[2016-04-04] MEDS ORDERED: D5% in Water 1,000 ML IV PRN (06:34)
[2016-04-04] MEDS ORDERED: *HR* Dextrose 50 % in Water (Syg) 50 ML SYRINGE IVP PRN (06:34)
[2016-04-04] MEDS ORDERED: Dextrose Gel 15 GM PO PRN ×2 (06:34)
[2016-04-04] MEDS: Insulin LISPRO 300 UNITS/3 ML VIAL SQ SCH ×2 (07:43→11:49)
--- NOTE | 2016-04-04 07:47 | Pulmonology Consult Note ---
Date of Encounter: 04/04/16 Time of Encounter: 07:47 Assessment and Plan (1) Lung nodule Current Visit: Yes Status: Acute Patient has a an approximate 2.5 cm lung nodule right middle lobe lobulated personal history of malignancy long smoking history and age puts her at high risk for possibility of primary lung cancer. We will consider bronchoscopy for biopsy however given exact location it is a somewhat technically challenging procedure and I will consult with interventional pulmonary. Patient is amenable to undergoing this procedure while an inpatient. Currently not on any blood thinners (does take a baby ASA daily) Patient is currently nothing by mouth from the pulmonary standpoint no reason to keep her nothing by mouth today procedure would likely be done tomorrow or day after depending on scheduling constraints (2) Epigastric pain Current Visit: Yes Status: Acute This is being managed by the primary internal medicine service (3) Tobacco abuse disorder Current Visit: Yes Status: Acute Tobacco cessation advised recommended nicotine patch while inpatient patient agreed that this is a opportune time to stop smoking and she is motivated to stop smoking (4) COPD suggested by initial evaluation Current Visit: Yes Status: Acute Recommend when necessary bronchodilators would be appropriate to give her combination ipratropium/albuterol every 6 hours as needed for shortness of breath History of Present Illness Consult date: 04/04/16 Requesting physician: Cuong Claire Reason for consult: abnormal CXR/CT Chief complaint: Abdominal Pain History of present illness: This is a 65-year-old woman with a long smoking history and underlying hypertension and diabetes who presents with a two-week history of abdominal pain in evaluation of abdominal pain including CT of the abdomen and pelvis there is noted a possible right middle lobe mass with concern for adrenal nodules. CT of the chest confirmed presence of approximately 2.5 cm pulmonary nodule in the right middle lobe pulmonary was consulted to comment on likely etiology and possible biopsy if warranted.The patient is a long-time abuser of tobacco including one pack a day since the age of approximately 14. She denies any shortness of breath at rest does have some intermittent shortness of breath with brisk exertion. She coughs intermittently but denies any hemoptysis she does endorse approximately 15 pound weight loss over the last 6 months which has been unintentional. No fevers chills or sweating at night. 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 and no other significant industrial/environmental risk factors Past Med Surg Social Fam HX - Past Medical History Medical history: COPD, CVA, diabetes, hyperlipidemia, hypertension Psychiatric history: no psych history - Past Surgical History Surgical History: cataract, hysterectomy, other (hemorrhoid thrombectomy) - Social History Smoking Status: Current every day smoker Packs per day: 1 Smokeless Tobacco Status: No Alcohol use: none Drug use: none - Family History Mother Hx Family Cardiac Disorders: Yes (CVA) Hx Family Respiratory Disorders: No Hx Family Cancer: No Hx Family GI Disorders: No Hx Family Genitourinary Disorders: No Hx Family Endocrine Disorder: No Hx Family Musculoskeletal Disorders: No Hx Family Neuromuscular Disorders: No Hx Family Neurologic Disorders: No Hx Family HEENT Disorders: No Hx Family Autoimmune Disorders: No Hx Family Reproductive Disorders: No Hx Family Psychosocial Disorders: No Hx Family Medical Disorders: No Brother Hx Family Cardiac Disorders: Yes ([place]) Medications and Allergies Aspirin 81 mg PO DAILY 12/26/15 [History] Atenolol [Tenormin] 25 mg PO DAILY 12/26/15 [History] Atorvastatin Calcium [Lipitor] 20 mg PO DAILY 12/26/15 [History] Docusate [Colace] 100 mg PO BID #30 capsule 12/26/15 [Rx] Fluconazole [Diflucan] 150 mg PO DAILY 12/26/15 [History] Glimepiride [Amaryl] 2 mg PO 0800 12/26/15 [History] Hydrochlorothiazide 25 mg PO DAILY 12/26/15 [History] Hydrocortisone Acetate [Anucort-Hc] 25 mg RC BID 12/26/15 [History] Hydrocortisone Rectal CRM [Proctosol-Hc] 1 appl RC BID 12/26/15 [History] Lidocaine HCl [Xolido] 1 appl TP TID 12/26/15 [History] Lidocaine Jelly 2% 1 appl MM ONCE #1 jel..ml. 12/26/15 [Rx] Lisinopril [Zestril] 20 mg PO DAILY 12/26/15 [History] Meclizine HCl [Verticalm] 25 mg PO DAILY 12/26/15 [History] Naproxen Sodium [Aleve] 220 mg PO BID PRN 12/26/15 [History] OxyCODONE/APAP 7.5/325 [Percocet 7.5/325 MG] 1 each PO Q4HR PRN #50 tablet 12/25 [Rx] SitaGLIPtin [Januvia] 100 mg PO DAILY 12/26/15 [History] Allergies Penicillins [PCN] Allergy (Verified 04/03/16 17:56) Hives/swelling All Systems: A 10-system review of systems was performed and is negative for pertinent findings except as documented above in the HPI. Physical Examination Vital Signs: Vital Signs, Last 4 Hours Temp Pulse Resp BP Pulse Ox 04/04/16 07:16 97.5 F L 53 20 131/84 94 L General appearance: no acute distress Eyes: nonicteric ENT: oropharynx moist Neck: supple, no lymphadenopathy Effort: normal Auscultation: bilateral: clear Cardiovascular: regular rate and rhythm Gastrointestinal: normoactive bowel sounds, tender (In the epigastrium to deep palpation) Integumentary: normal Extremities: no cyanosis, no edema, no clubbing Musculoskeletal: no deformities normal mental status, non-focal exam mood appropriate Results - Laboratory Findings CBC and BMP: 04/03/16 20:41 04/03/16 20:41 Abnormal lab findings: Abnormal lab results WBC 11.5 K/mcL (4.3-11.1) H 04/03/16 20:41 RBC 5.09 M/mcL (3.82-4.97) H 04/03/16 20:41 Hct 45.2 % (35.3-44.9) H 04/03/16 20:41 RDW 15.9 % (11.5-14.5) H 04/03/16 20:41 Glucose 66 mg/dL (70-99) L 04/03/16 20:41 Alkaline Phosphatase 130 Units/L (38-126) H 04/03/16 20:41 Globulin 3.7 g/dL (2.4-3.5) H 04/03/16 20:41 Albumin/Globulin Ratio 0.9 (1.1-2.2) L 04/03/16 20:41 Ur Specific [place] 1.007 (1.010-1.025) L 04/03/16 20:12 - Diagnostic Findings CT scan - chest: report reviewed, image reviewed Consult Discharge Plan - Plan Referrals: NO,PCP [Primary Care Provider] -
[2016-04-04] MEDS ORDERED: Pantoprazole 40 MG VIAL IVP SCH (09:00)
[2016-04-04] MEDS ORDERED: Nicotine 14 MG PATCH.TD24 TD SCH (10:30)
[2016-04-04 11:51] VITALS: BP 92/61
--- NOTE | 2016-04-04 14:13 | Discharge Summary ---
Date of Encounter: 04/04/16 Time of Encounter: 14:00 - Discharge Diagnosis (1) Diabetes mellitus type 2 in obese Priority: Secondary Status: Acute (2) Hypertension Priority: Secondary Status: Acute Qualifiers: Hypertension type: essential hypertension Qualified Code(s): I10 - Essential (primary) hypertension (3) Lung nodule Priority: Primary Status: Acute (4) Pulmonary neoplasm Priority: Primary Status: Acute (5) RUQ pain Priority: Primary Status: Acute (6) Tobacco abuse disorder Priority: Secondary Status: Acute - Discharge Medications Prescriptions: Nicotine Patch [Nicoderm] 14 mg TD DAILY #14 patch.td24 Omeprazole [PriLOSEC] 20 mg PO DAILY@0630 #30 capsule. Home Medications: Aspirin 81 mg PO DAILY 12/26/15 [History] Atenolol [Tenormin] 25 mg PO DAILY 12/26/15 [History] Atorvastatin Calcium [Lipitor] 20 mg PO DAILY 12/26/15 [History] Docusate [Colace] 100 mg PO BID #30 capsule 12/26/15 [Rx] Fluconazole [Diflucan] 150 mg PO DAILY 12/26/15 [History] Glimepiride [Amaryl] 2 mg PO DAILY 12/26/15 [History] Hydrochlorothiazide 25 mg PO DAILY 12/26/15 [History] Hydrocortisone Acetate [Anucort-Hc] 25 mg RC BID 12/26/15 [History] Lidocaine HCl [Xolido] 1 appl TP TID 12/26/15 [History] Lisinopril [Zestril] 20 mg PO BID 12/26/15 [History] Meclizine HCl [Verticalm] 25 mg PO DAILY 12/26/15 [History] Naproxen Sodium [Aleve] 220 mg PO BID PRN 12/26/15 [History] SitaGLIPtin [Januvia] 100 mg PO DAILY 12/26/15 [History] Nicotine Patch [Nicoderm] 14 mg TD DAILY #14 patch.td24 04/04/16 [Rx] Omeprazole [PriLOSEC] 20 mg PO DAILY@0630 #30 capsule. 04/04/16 [Rx] OxyCODONE/APAP 7.5/325 [Percocet 7.5/325 MG] 1 tab PO Q4HR PRN 04/04/16 [History ] Allergies/Adverse Reactions: Allergies Penicillins [PCN] Allergy (Verified 04/03/16 17:56) Hives/swelling Procedures/tests Complete & Pending: Procedures Performed prior 72 hours Category Date Time Status ECG 12 lead ECG [ECG] Routine Y 04/03/16 20:13 Completed Date of admission: 04/04/16 07:04 Primary care physician: Homar Locke MD Consults: 04/04/16 07:20 Consult to Pulmonology [CONS] Routine Consulting Provider: [facility] [place] Reason for Consult: Right lung mass Call Completed: Yes Discharging clinician: Seth Merino Anticipated date of discharge: 04/04/16 - Patient Status Disposition: Home, Self-Care Condition: Good Functional capacity at discharge: independent ambulation Overall status at discharge: patient is progressing back to baseline - Discharge Instructions Follow Up With: Homar Locke MD [Primary Care Provider] - 04/25/16 9:15 am - Diet and Activity Activity: increase activity as tolerated Diet: diabetic diet Interval History: Ms. Pina is a 65 year old female with past medical history significant for COPD, CVA, diabetes, hyperlipidemia, hypertension. She states she has 2 week history of right upper quadrant abdominal pain that radiates around the right flank and up to the right scapula. Pain was described as electrical shocks in the abdomen. Pain has been constant for 2 weeks but has waxed and waned in intensity. On 04/03/2016 pain progressed to a 9 out of 10. Patient tried icy hot rub and heat packs for the problem. Problem was improved by heat and worsened by nothing. Denies any associated fever, chills, nausea, vomiting, heartburn, diarrhea, constipation, hematochezia, melena. Hospital course: Ms. Pina is a 65 year old female admitted as RUQ and epigastric pain. Patient was found pulmonary mass incidentally by CT. Pulmonary consult was called and saw patient. Bronchoscope is scheduled as outpatient by pulmonary consult. Patient had abdominal CT, and abdominal ultrasound done, which are unremarkable. Her liver function is normal. lipase and bilirubin are within normal limit. Urine analysis negative. I saw and examined the patient today. She feels less pain. She said that the pain is getting worse when she moves. But in no pain when she keeps still. On exam, her abdomen is soft, mild to moderate tenderness on RUQ and epigastric area, without rebound or guarding. Bowel sounds are normal. Discussed with patient, since the pain is getting worse when she moves and all the negative abdominal exam and the test, consider her pain is muscular pain. Patient denies heart burn or acid reflex, however will also empirically treat her with PPI. Patient will discharge him pain medication. Patient was told although her test results are negative at this point, she needs to come back to hospital if the symptoms get worse. Patient to mobilize understanding and agreement. Will discharge patient home today and follow up with pulmonology as outpatient. Time spent discussing smoking cessation with patient: 3 to 10 minutes - Time Spent with Patient Total time spent providing and/or coordinating discharge services: 40 minutes Greater than 30 minutes - Constitutional Vitals: Temp Pulse Resp BP Pulse Ox 97.3 F L 69 16 92/61 91 L 04/04/16 11:50 04/04/16 11:50 04/04/16 11:50 04/04/16 11:50 04/04/16 11:50 General appearance: Present: cooperative, A&O X 3, pleasant, answers questions appropriately (Tearful when describing that she is forgetful of medical problems and medications. ) - Head Head exam: Present: atraumatic, normocephalic - Eye Eye exam: Present: PERRL, conjuntiva pink, sclera anicteric Pupils: Present: PERRL - Neck Neck exam general surgery: Present: supple, trachea midline. Absent: lymphadenopathy - Respiratory Respiratory exam: Present: CTAB. Absent: accessory muscle use, rales, rhonchi, wheezes - Cardiovascular Cardiovascular exam: Present: RRR, +S1, +S2. Absent: diastolic murmur, gallop, rubs, systolic murmur - GI/Abdominal GI/Abdominal exam: Present: normal bowel sounds, soft, tenderness (Mild to moderate tenderness on RUQ and epigastric area, no rebound, no guarding), no peritoneal signs. Absent: distended - Extremities Exam Extremities exam: Present: warm, radial pulses palpable and symetrical. Absent : calf tenderness, cyanotic, pedal edema - Neurological Exam Neurological exam: Present: CN II-XII intact, oriented X3, no focal deficits. Absent: pronater drift, facial droop, speech deficit - Skin Skin exam: Present: dry, intact
--- NOTE | 2016-04-04 14:55 | Electrocardiograph Report ---
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
--- NOTE | 2016-04-04 16:12 | Internal Med Progress Note ---
Date of Encounter: 04/04/16 Time of Encounter: 14:00 - Assessment and plan (1) Diabetes mellitus type 2 in obese Current Visit: Yes Status: Acute (2) Hypertension Current Visit: Yes Status: Acute Qualifiers: Hypertension type: essential hypertension Qualified Code(s): I10 - Essential (primary) hypertension (3) Lung nodule Current Visit: Yes Status: Acute (4) Pulmonary neoplasm Current Visit: Yes Status: Acute (5) RUQ pain Current Visit: Yes Status: Acute (6) Tobacco abuse disorder Current Visit: Yes Status: Acute - Subjective Interval history: A review by [facility] [employer] and a member of the utilization review committee has determined that the status is to be changed to observation using condition code 44. I, Seth Merino, am in agreement that the status is to be changed to observation. - Constitutional Vitals: Temp Pulse Resp BP Pulse Ox 97.3 F L 69 16 92/61 91 L 04/04/16 11:50 04/04/16 11:50 04/04/16 11:50 04/04/16 11:50 04/04/16 11:50 General appearance: Present: cooperative, A&O X 3, pleasant, answers questions appropriately (Tearful when describing that she is forgetful of medical problems and medications. ) Internal Medicine: Result - Labs CBC & Chem 7: 04/03/16 20:41 04/03/16 20:41 Consult Discharge Plan - Plan Instructions: Omeprazole (By mouth), Nicotine (Absorbed through the skin), Flexible Bronchoscopy (DC), Flexible Bronchoscopy (GEN) Referrals: Rome Garcia MD [Partnered Physician] - (You will be contacted this week for your appt information.) Homar Locke MD [Primary Care Provider] - 04/25/16 9:15 am Prescriptions: OxyCODONE/APAP 5/325 [Percocet 5/325 MG] 1 each PO Q6HR PRN #20 tablet PRN Reason: Pain Nicotine Patch [Nicoderm] 14 mg TD DAILY #14 patch.td24 Omeprazole [PriLOSEC] 20 mg PO DAILY@0630 #30 capsule.
[2016-04-04] MEDS ORDERED: *HR* Heparin 5,000 UNIT/ML VIAL SQ SCH (19:00)
== END 2016-04-04 15:50 | disposition home or self-care (01) | DRG 182 ==
LOC: 3BNU 17:21 → EMEROO 17:21 → 3BNU 04-04 03:46
PROVIDERS: ADMIT Hospitalist; ATTEND Nurse Practitioner Family